=== PATIENT | female | born 1985 | race Caucasian/White ===

== ENCOUNTER 2017-01-12 12:17 | Emergency (ER) | payer OTHER ==
[~2017-01-12 12:17] MED LIST: BACTRIM DS TABL1 TA1; BACTRIM DS TABL1 TA1 PO; BACTRIM DS TABL1 TA2; BACTRIM DS TABL1 TA2 PO; BACTROBAN22 GM TOP; CIPRO PO; CLINDAMAX30 GM; COLACE PO; DICLOFENAC; FLEXERIL10 MG PO; FLONASE 0.05% N16 G1; IBUPROFEN800 MG PO; KEFLEX500 MG PO; MEDROL DOSEPAK4 MG PO; METHADONE PO; METRONIDAZOLE PO; MIRALAX17 GM; MOTRIN600 MG PO; NO MEDICATIONS; PENICILLIN V P500 MG PO; PHENERGAN PO; PHENERGAN25 M1 DOB; PHENERGAN25 M1 PO; PHENERGAN25 MG PO; TYLENOL #3 PO; TYLENOL/CODEINE1 TAB PO; VISTARIL PO; VOLTAREN50 MG PO; VOLTAREN75 MG PO; ZOFRAN; ZYRTEC10 M2 PO
== END 2017-01-12 12:57 | disposition home or self-care (01) ==
LOC: SED 12:17
DX: J06.9 Acute upper respiratory infection, unspecified (principal); F17.200 Nicotine dependence, unspecified, uncomplicated
CPT/HCPCS: 99282